=== PATIENT | male | born 1930 | race Caucasian/White ===

== ENCOUNTER 2016-11-14 13:13 | Day surgery (SDC) | payer MEDICARE ==
[~2016-11-14 13:13] MED LIST: LEVOFLOXACIN 250 MG TABLET PO PRN
--- OUTSIDE RECORDS SUMMARY | 2016-11-14 13:17 | XMS REPORT | Continuity of Care Document ---
:1930 Author Organization [facility] ([facility]) Address [address] [place] [address] Phone [phone] Care Team Providers Name Role Phone Laura Wilburn Primary Care Provider [phone] Source Comments This disclosure is being made pursuant to the Care Everywhere program, applicable federal and state laws, and may not contain all informaitonavailable regarding this patient.[facility] ([facility]) Active Allergies and Adverse Reactions Allergen Noted Date Severity Reactions Comments Tetanus Toxoid, Adsorbed Urticaria (Hives) Current Medications Prescription Sig. Disp. Refills Start Date End Date Status fenofibrate (TRICOR) Take 1 Tab by mouth Active 145 mg tablet at bedtime. aspirin 325 mg EC take 325 mg by mouth Active tablet daily. Export-3 Fatty take 1 Cap by mouth Active Acids-Vitamin E (FISH daily. OIL) 1,000 mg Cap Multivit & take 1 Tab by mouth. Active Min-FA-Diet Comb 19 0.4 mg Cap docusate (COLACE) 100 Take 100 mg by mouth Active mg capsule daily. One tablets in morning and two tablets at bedtime simvastatin (ZOCOR) take 40 mg by mouth Active 40 mg tablet every evening. amLODIPine (NORVASC) take 5 mg by mouth Active 5 mg tablet Every morning. travoprost (TRAVATAN instill 1 Drop onto 1 Bottle 11 02/23/2010 Active Z) 0.004 % ophthalmic both eyes at solution bedtime. Indications: Ocular Hypertension SERTRALINE HCL Take 150 mg by mouth Active (ZOLOFT PO) Every morning. olmesartan-hydrochlor Take 1 Tab by mouth Active othiazide (BENICAR daily. HCT) 40-25 mg per tablet levothyroxine 25 mcg Take 25 mcg by mouth Active tablet every morning before breakfast. clopidogrel (PLAVIX) Take 1 Tab by mouth 30 Tab 3 10/30/2011 Active 75 mg tablet daily. Indications: Unstable Angina Pectoris busPIRone 5 mg tablet Take 5 mg by mouth 2 Active times daily. 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 Abdominal aneurysm without mention of rupture 12/16/2007 Occlusion and stenosis of carotid artery without mention of cerebral 2005 infarction Unspecified cerebral artery occlusion without mention of cerebral 11/20/2005 infarction Other atherosclerosis of [place] arteries of the extremities 11/20/2005 Peripheral vascular disease, unspecified 11/20/2005 Social History Tobacco Use Types Packs/Day Years Used Date Former Smoker Cigarettes 1.5 30 Quit: 04/08/2000 Smokeless Tobacco: Never Used Alcohol Use Drinks/Week oz/Week Comments No Last Filed Vital Signs Vital Sign Reading Time Taken Blood Pressure 162/75 12/04/2011 2:02 PM CDT Pulse 68 12/04/2011 2:02 PM CDT Temperature 36.4 C (97.5 F) 12/04/2011 2:01 PM CDT Respiratory Rate 16 10/29/2011 6:21 AM CDT Height 1.778 m (5' 10") 12/04/2011 2:01 PM CDT Weight 80.74 kg (178 lb) 12/04/2011 2:01 PM CDT Body Mass Index 25.54 12/04/2011 2:01 PM CDT Oxygen Saturation 97% 10/30/2011 8:34 AM CDT Plan of Care Health Maintenance Due Date Last Done Comments Hepatitis B Vaccine (1 of 3 - Primary Series) 1930 Lipid Disorder Screening 1950 Colonoscopy 1982 Zoster Vaccine 1992 Pneumococcal Vaccine (1 of 2 - PCV13) 1997 Influenza Vaccine: Seasonal (#1) 01/09/2016 Results from Last 3 Months Not on file
[2016-11-14] MEDS ORDERED: LIDOCAINE HCL 10 APPL CARTRIDGE TP ONE (14:15)
--- NOTE | 2016-11-14 14:29 | OR ---
Operative Report - Dictated Report Narrative: Location: Main OR Anesthesia: Local Preoperative Diagnosis: History of bladder cancer Postoperative Diagnosis: Same, proximal urethral subclinical stricture 14French , post TURP [place] fossa without obstruction Procedure: #1 flexible cystoscopy with washing for cytology, dilation of 14 Thai stricture with 16 Thai cystoscope Indications: 85-year-old male with history of bladder cancer and prior TURP. Asked recurrence couple years ago. Was seen recently by Dr. Alberto Salas with recent history and physical which was reviewed. We discussed options including risks and elected to proceed with surveillance cystoscopy today without anesthesia. Description: Consent obtained. Placed in the supine position. Prepped and draped. Time-out taken . Lidocaine jelly introduced into the urethra for local anesthetic. Scope inserted into the urethra and navigated towards the bladder. Just distal to sphincter was a subclinical narrowing I would guess about 14 Thai. Looked fairly short. Sphincter was visible just behind. With the scope parked in the middle and some constant pressure I was able to pop through with some mild resistance. Bladder was then entered Brown cystoscopy carried out. No tumors stones or suspicious lesions . Prior resection sites were well- healed without evidence of recurrence. Does have some pre-existing trabeculation probably predating his TURP. Ureters normal. Washing for cytology. On retroflexion post TURP fossa without obstruction. Prostate was medium postresection with some mild regrowth but again did not look obstructing. Urethra was now widely patent. There was a little bit of ooze in the area were the stricture opened up he should be just fine. 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 Did require some pressure pop through with a flexible scope. Negative cystoscopy for bladder cancer recurrence. Cytology pending. Post TURP fossa without obstruction with some pre-existing obstructive change in the bladder FOLLOW UP: His memory has been deteriorating. I discussed this with the and we elected to back off some on the frequency of the flexible cystoscopy and stent of 6 months to 12 months. I do believe this is reasonable given his comorbidities and mental status with deterioration. Understands there is a small possibility something to pop up in the interim but unlikely again I think given his situation better option to be a little more conservative than usual. I will see him in the office in 12 months with ultrasound pre-and post void, UA and creatinine. At that point we'll decide whether or not to proceed with cystoscopy depending on current health situation in mental status.
[2016-11-14 15:02] VITALS: BP 162/98
== END 2016-11-14 13:14 | disposition home or self-care (01) ==
LOC: AMB 13:13
PROVIDERS: ATTEND Urology
PROC: 3E1K88X Irrigation of Genitourinary Tract using Irrigating Substance, Via Natural or Artificial Opening Endoscopic, Diagnostic (ICD-10-PCS; 2016-11-14)
PROC: 0TJB8ZZ Inspection of Bladder, Via Natural or Artificial Opening Endoscopic (ICD-10-PCS; principal; 2016-11-14 15:55)
DX: Z85.51 Personal history of malignant neoplasm of bladder (principal); N35.9 Urethral stricture, unspecified; I10 Essential (primary) hypertension; E78.5 Hyperlipidemia, unspecified; E03.9 Hypothyroidism, unspecified; I65.29 Occlusion and stenosis of unspecified carotid artery; G30.9 Alzheimer's disease, unspecified; F02.80 Dementia in other diseases classified elsewhere, unspecified severity, without behavioral disturbance, psychotic disturbance, mood disturbance, and anxiety; Z87.891 Personal history of nicotine dependence; Z68.28 Body mass index [BMI] 28.0-28.9, adult